=== PATIENT | male | born 1955 | race Two or more races ===

== ENCOUNTER 2025-01-07 10:52 | Outpatient (CLI) | payer OTHER ==
[2025-01-07 11:22] LABS: BASO % 0.9 % (0.1-1.2); EOS # 0.14 (0.04-0.54); EOS % 1.5 % (0.7-7.0); LYMPH # 3.43 (1.18-3.74); LYMPH % 36.6 % (19.3-53.1); MEAN PLATELET VOLUME 9.00 fl (9.4-12.4); MONO # 0.88 (0.24-0.82); MONO % 9.4 % (4.7-12.5); NEUT # 4.81 (1.56-6.13); NEUT % 51.4 % (34.0-71.1); RED CELL DISTRIBUTION WIDTH 13.1 % (11.6-14.4)
[2025-01-07 12:00] LABS: URINE BILIRRUBIN NEGATIVE (NEGATIVE); URINE BLOOD NEGATIVE; URINE GLUCOSE NEGATIVE (NEGATIVE); URINE KETONE NEGATIVE (NEGATIVE); URINE LEUKOCYTE NEGATIVE; URINE NITRATE NEGATIVE; URINE PROTEIN NEGATIVE (NEGATIVE); URINE UROBILINOGEN 0.2 E.U./dl
[2025-01-07 12:03] LABS: ALT/SGPT 29.0 U/L (12-78); AST/SGOT 15.0 U/L (15-37); BILIRUBIN TOTAL 1.35 mg/dL (0.3-1.2); BUN CREA RATIO 30.0 (7.0-25.0); CHOL HDL RATIO 3.0 (0-5.0); CREATININE SERUM 0.88 mg/dL (0.70-1.30); GFR 85.37; GLOBULINA 3.2 G/DL (2.4-3.5); GLUCOSE FASTING 103.0 mg/dL (65-100); HDL 59.0 mg/dl (40-60); LDL 96.0 mg/dl (0-130); OSMOLALITY SERUM 284.0 MOSM/KG (275-295); T4 FREE 0.87 NG/ML (0.76-1.46); TSH 1.56 uIU/mL (0.358-3.74); VLDL 21.0 (0-39)
[2025-01-07 12:30] LABS: URINE APPEARANCE CLEAR; URINE COLOR YELLOW
[2025-01-07 12:32] LABS: URINE BACTERIA SOME; URINE CRYSTALS NEGATIVE /HPF; URINE EPITHELIAL CELLS 0-4 /HPF; URINE MUCUS NEGATIVE; URINE RBC 0-3 /HPF; URINE WBC 0-2 /hpf
== END 2025-01-07 11:03 | disposition home or self-care (01) ==
LOC: LAB 10:52
PROVIDERS: ATTEND Internal Medicine Endocrinology, Diabetes & Metabolism
DX: E78.5 Hyperlipidemia, unspecified (principal); E11.65 Type 2 diabetes mellitus with hyperglycemia; E03.9 Hypothyroidism, unspecified

== ENCOUNTER → 2025-03-08 07:48 | Outpatient (CLI) | payer OTHER ==
[2025-03-08 08:47] LABS: BASO % 0.9 % (0.1-1.2); EOS # 0.16 (0.04-0.54); EOS % 2.9 % (0.7-7.0); LYMPH # 2.76 (1.18-3.74); LYMPH % 50.2 % (19.3-53.1); MEAN PLATELET VOLUME 9.20 fl (9.4-12.4); MONO # 0.74 (0.24-0.82); NEUT # 1.78 (1.56-6.13); NEUT % 32.3 % (34.0-71.1); RED CELL DISTRIBUTION WIDTH 12.8 % (11.6-14.4)
[2025-03-08 08:53] LABS: MONO % 13.5 % (4.7-12.5)
[2025-03-08 08:54] LABS: ERYTHROCYTE SEDIMENTATION RATE < 1 mm/hr (0-20)
[2025-03-08 09:33] LABS: URINE APPEARANCE Clear; URINE BILIRRUBIN Negative (NEGATIVE); URINE BLOOD Negative; URINE COLOR Yellow; URINE GLUCOSE Negative (NEGATIVE); URINE KETONE Negative (NEGATIVE); URINE LEUKOCYTE Trace; URINE NITRATE Negative; URINE PROTEIN Negative (NEGATIVE); URINE UROBILINOGEN 0.2 E.U./dl
[2025-03-08 09:38] LABS: URINE RBC 2.4 uL (0.0-20.8)
[2025-03-08 09:39] LABS: ALT/SGPT 38.0 U/L (12-78); AST/SGOT 24.0 U/L (15-37); BILIRUBIN TOTAL 1.96 mg/dL (0.3-1.2); BUN CREA RATIO 24.0 (7.0-25.0); CHOL HDL RATIO 3.7 (0-5.0); CREATININE SERUM 0.8 mg/dL (0.70-1.30); GFR 95.02; GLOBULINA 3.0 G/DL (2.4-3.5); GLUCOSE FASTING 109.0 mg/dL (65-100); HDL 46.0 mg/dl (40-60); LDL 108.0 mg/dl (0-130); OSMOLALITY SERUM 286.0 MOSM/KG (275-295); PROSTATIC SPECIFIC ANTIGEN 1.57 NG/ML (0.010-4.00); VLDL 18.0 (0-39)
[2025-03-08 09:45] LABS: URINE BACTERIA 0 uL (0.0-1933); URINE CAST 0.00 uL (0.0-1.40); URINE EPITHELIAL CELLS 0.4 uL (0.0-38.8); URINE WBC 0.7 uL (0.0-23.2)
[2025-03-08 10:40] LABS: VITAMIN D3 25 HYDROXY 58.95 ng/ml (30-120)
== END | disposition home or self-care (01) ==
LOC: LAB 07:48
PROVIDERS: ATTEND Specialist
DX: D64.9 Anemia, unspecified (principal); I10 Essential (primary) hypertension; N39.0 Urinary tract infection, site not specified; E78.2 Mixed hyperlipidemia; E11.9 Type 2 diabetes mellitus without complications; Z82.61 Family history of arthritis; E55.9 Vitamin D deficiency, unspecified; E53.8 Deficiency of other specified B group vitamins; N41.9 Inflammatory disease of prostate, unspecified; N42.9 Disorder of prostate, unspecified